=== PATIENT | male | born 2005 | race Caucasian/White ===

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

== ENCOUNTER 2024-05-02 10:18 | Emergency (ER) | payer MEDICAID ==
[~2024-05-02] VITALS: Ht 182.9 cm; Wt 68.2 kg
[~2024-05-02 10:18] MED LIST changes: +00186-0370-20 IH; +BACTROBAN15 GM TOP; +PROVENTIL0.09 MG/A1 IH
[2024-05-02 10:32] VITALS: BP 119/81; TEMP 98.2
[2024-05-02] MEDS ORDERED: PREDNISONE20 MG PO (12:00)
[2024-05-02 12:10] VITALS: PULSE 91
== END 2024-05-02 12:10 | disposition home or self-care (01) ==
LOC: COL.ER 10:18
DX: S51.812A Laceration without foreign body of left forearm, initial encounter (principal); L30.9 Dermatitis, unspecified; W26.0XXA Contact with knife, initial encounter